=== PATIENT | female | born 1955 | race Caucasian/White ===

== ENCOUNTER 2024-09-23 12:56 | Inpatient (IN) | payer OTHER ==
[2024-09-23 13:49] VITALS: RESP 18
[2024-09-23 15:00] LABS: BASO % 0.6 % (0-2.0); EOS % 0.8 % (0-4.5); HEMATOCRIT 33.5 % (32.4-45.2); LYMPH % 20.1 % (8-40); MCH 27.9 pg (25.7-33.7); MCHC 32.8 g/dl (32.0-36.0); MEAN PLT VOLUME 10.2 fl (7.5-11.1); MONO % 8.9 % (3.8-10.2); NEUT % 69.6 % (42.8-82.8); PLATELET COUNT 156 10^3/uL (134-434); RBC 3.94 M/mm3 (3.60-5.2); RDW 14.1 % (11.6-15.6); WHITE BLOOD COUNT 4.8 K/mm3 (4.0-10.0)
[2024-09-23 15:18] LABS: POTASSIUM 3.7 mmol/L (3.5-5.1)
[2024-09-23 15:20] LABS: CALCIUM 9.1 mg/dL (8.5-10.1)
[2024-09-23 15:21] LABS: ALBUMIN 3.6 g/dl (3.4-5.0); BLOOD UREA NITROGEN 12.9 mg/dL (7-18)
[2024-09-23 15:24] LABS: CREATININE 0.9 mg/dL (0.55-1.3)
[2024-09-23 15:26] LABS: BILIRUBIN,TOTAL 0.6 mg/dL (0.2-1); TOT PROT 6.2 g/dl (6.4-8.2)
[2024-09-23 19:05] LABS: EPI CELLS 4 /uL (0-25.1); HYALINE CASTS 7 /uL (0-3.1); PH,URINE 7.5 (5.0-8.0); URINE APPEARANCE TURBID; URINE BACTERIA >9,000 /uL (0-1359); URINE BILIRUBIN NEGATIVE (NEGATIVE); URINE COLOR YELLOW; URINE GLUCOSE (UA) NEGATIVE (NEGATIVE); URINE KETONE NEGATIVE (NEGATIVE); URINE LEUK ESTERASE 3+ (NEGATIVE); URINE NITRITE NEGATIVE (NEGATIVE); URINE PROTEIN 2+ (NEGATIVE); URINE UROBILINOGEN 0.2 mg/dL (0.2-1.0); URINE WBC 11189 /uL (0-25.8)
[2024-09-23 19:46] LABS: URINE RBC 350.2 /uL (0-23.9)
[2024-09-23] MEDS ORDERED: CEFTRIAXONE 1 GM/50 ML BAG ONE (20:31)
[2024-09-23] MEDS: CEFTRIAXONE 1 GM in DEXTROSE 5%-WATER - 100 ML IVPB ONE (20:39)
[2024-09-24] MEDS: ACETAMINOPHEN 1000 MG/100 ML BAG IVPB PRN (01:35)
[2024-09-24] MEDS: TAMSULOSIN HCL 0.4 MG CAP PO SCH (08:21)
[2024-09-24 08:43] VITALS: BMI 23.3
[2024-09-24] MEDS: MEMANTINE HCL 10 MG TABLET (FP) PO SCH (09:51)
[2024-09-24] MEDS: ASPIRIN COATED 81 MG TABLET.EC PO SCH (09:51)
[2024-09-24] MEDS: MAG HYDROX/AL HYDROX/SIMETH 30 ML UNIT-DOSE CUP PO SCH (09:52)
[2024-09-24] MEDS: CEFTRIAXONE 1 G/50 ML PREMIX 50 ML IVPB SCH (10:11)
[2024-09-24 10:53] LABS: BASO % 0.5 % (0-2.0); EOS % 0.9 % (0-4.5); HEMATOCRIT 36.8 % (32.4-45.2); HEMOGLOBIN 12.5 GM/dL (10.7-15.3); LYMPH % 15.4 % (8-40); MEAN CELL VOLUME 85.3 fl (80-96); MEAN PLT VOLUME 10.2 fl (7.5-11.1); MONO % 6.3 % (3.8-10.2); NEUT % 76.9 % (42.8-82.8); PLATELET COUNT 160 10^3/uL (134-434); RBC 4.31 M/mm3 (3.60-5.2); WHITE BLOOD COUNT 4.7 K/mm3 (4.0-10.0)
[2024-09-24 11:18] LABS: POTASSIUM 3.8 mmol/L (3.5-5.1)
[2024-09-24 11:25] LABS: BLOOD UREA NITROGEN 12.8 mg/dL (7-18); CALCIUM 9.3 mg/dL (8.5-10.1)
[2024-09-24 11:28] LABS: CREATININE 0.9 mg/dL (0.55-1.3)
[2024-09-24] MEDS: BREXPIPRAZOLE (REXULTI) 1 MG TABLET (RESTRICTED TO PSYCIATRY) PO SCH (17:30)
[2024-09-24] MEDS: traZODone HCL 100 MG TABLET (FP) PO SCH (21:18)
[2024-09-24] MEDS: ATORVASTATIN CA 80 MG TABLET (FP) PO SCH (21:18)
[2024-09-24] MEDS: DONEPEZIL HCL 10 MG TABLET (FP) PO SCH (21:18)
[2024-09-24] MEDS: MIRTAZAPINE 15 MG TABLET (FP) PO SCH (21:18)
[2024-09-24] MEDS: SENNOSIDES 8.6MG TABLET (FP) PO SCH (21:18)
[2024-09-25 08:58] LABS: POTASSIUM 3.4 mmol/L (3.5-5.1)
[2024-09-25 08:59] LABS: BLOOD UREA NITROGEN 14.2 mg/dL (7-18); CALCIUM 9.6 mg/dL (8.5-10.1)
[2024-09-25 09:03] LABS: CREATININE 0.8 mg/dL (0.55-1.3)
[2024-09-25 09:04] LABS: BASO % 0.4 % (0-2.0); EOS % 0.8 % (0-4.5); HEMATOCRIT 37.9 % (32.4-45.2); HEMOGLOBIN 12.2 GM/dL (10.7-15.3); LYMPH % 32.3 % (8-40); MCH 27.9 pg (25.7-33.7); MCHC 32.4 g/dl (32.0-36.0); MEAN CELL VOLUME 86.1 fl (80-96); MEAN PLT VOLUME 9.9 fl (7.5-11.1); MONO % 10.3 % (3.8-10.2); NEUT % 56.2 % (42.8-82.8); PLATELET COUNT 174 10^3/uL (134-434); RDW 13.9 % (11.6-15.6); WHITE BLOOD COUNT 4.2 K/mm3 (4.0-10.0)
[2024-09-26] MEDS: POTASSIUM CHLORIDE ORAL LIQUID 20 MEQ/15 ML PO ONE (12:34)
[2024-09-26] MEDS ORDERED: PHENYLEPHRINE 0.25% NASAL SPRAY 15 ML BOTTLE NS PRN (14:53)
[2024-09-26] MEDS: AMOX TR/POT CLAV 875MG/125MG TABLETS (FP) PO SCH (17:12)
[2024-09-27 10:24] LABS: BASO % 0.5 % (0-2.0); HEMATOCRIT 36.4 % (32.4-45.2); HEMOGLOBIN 12.1 GM/dL (10.7-15.3); LYMPH % 27.4 % (8-40); MCH 28.1 pg (25.7-33.7); MCHC 33.3 g/dl (32.0-36.0); MEAN CELL VOLUME 84.5 fl (80-96); MONO % 6.8 % (3.8-10.2); NEUT % 63.3 % (42.8-82.8); PLATELET COUNT 177 10^3/uL (134-434); RDW 13.9 % (11.6-15.6); WHITE BLOOD COUNT 4.9 K/mm3 (4.0-10.0)
[2024-09-27 10:46] LABS: BLOOD UREA NITROGEN 16.2 mg/dL (7-18); POTASSIUM 3.9 mmol/L (3.5-5.1)
[2024-09-27 10:50] LABS: CREATININE 0.8 mg/dL (0.55-1.3)
[2024-09-29 14:12] VITALS: BP 112/63; PULSE 76; TEMP 98.6
== END 2024-09-29 20:43 | DRG 689 ==
LOC: JER 12:56 → JERBED 18:57 → J6S 09-24 04:04 → OBSVTOIN 09-24 10:56
PROVIDERS: ADMIT Internal Medicine; ATTEND Internal Medicine
DX: N39.0 Urinary tract infection, site not specified (principal); G93.41 Metabolic encephalopathy; F02.811 Dementia in other diseases classified elsewhere, unspecified severity, with agitation; F32.A Depression, unspecified; E78.5 Hyperlipidemia, unspecified; G30.9 Alzheimer's disease, unspecified; R62.7 Adult failure to thrive
CPT/HCPCS: 36415; 70450-TC; 71045-TC-FY; 80048; 80053; 81003; 85025; 87086; 87186; 87635; 93005; 93010; 97116-GP; 97162-GP; 99285-25; G0378; J0131